=== PATIENT | female | born 1945 | race Caucasian/White ===

== ENCOUNTER 2025-01-27 15:21 | Emergency (ER) | payer MEDICARE ==
[~2025-01-27] VITALS: Ht 160 cm; Wt 62.6 kg
[2025-01-27 15:45] LABS: PLATELET COUNT (AUTO) 115 K/uL (150-450); RED BLOOD CELL COUNT(AUTO) 4.36 MIL/uL (4.0-5.2); RED CELL DISTRIBUTION WIDTH 15.2 % (11.5-15.0); WHITE BLOOD COUNT (AUTO) 4.5 K/uL (4.3-11.0)
[2025-01-27 15:53] LABS: CALCIUM, SERUM 9.5 mg/dL (8.5-10.1); CREATININE 0.7 mg/dL (0.6-1.3); SODIUM SERUM 140 mmol/L (136-145); UREA NITROGEN, BLOOD 17 mg/dL (7-18)
[2025-01-27 16:06] LABS: NT-PRO BNP 240 pg/mL (0-125)
[2025-01-27 18:15] VITALS: BP 125/70; TEMP 98.5; O2SAT 99
== END 2025-01-27 18:15 | disposition home or self-care (01) ==
LOC: ER 15:25
DX: R07.89 Other chest pain (principal); R06.02 Shortness of breath
CPT/HCPCS: 36415; 71045-TC; 80048-TC; 83880; 84484-TC; 85025-TC